=== PATIENT | male | born 1960 | race Caucasian/White ===

== ENCOUNTER 2016-08-28 02:20 | Emergency (ER) | payer OTHER | END 2016-08-28 08:11 | disposition other institution (70) | LOC: ER 02:20 | DX: K80.00 Calculus of gallbladder with acute cholecystitis without obstruction (principal); I10 Essential (primary) hypertension; Z87.891 Personal history of nicotine dependence | CPT/HCPCS: 36415; 96365; 96375; 96376; Q9967 ==